=== PATIENT | female | born 1965 | race Caucasian/White ===

== ENCOUNTER 2024-03-18 05:09 | Day surgery (SDC) | payer OTHER ==
[2024-03-17 16:00] VITALS: BMI 23.1
[2024-03-18] MEDS ORDERED: LIDOCAINE HCL/PF 1% SDV 5ML VIAL ONE (07:27)
[2024-03-18] MEDS ORDERED: DEXAMETHASONE SOD PHOSPHATE 10 MG/1 ML VIAL ONE (07:28)
[2024-03-18 10:13] VITALS: RESP 20
[2024-03-18] MEDS: DEXAMETHASONE SOD PHOSPHATE 10 MG/1 ML VIAL IVPUSH ONE ×2 (11:13)
[2024-03-18] MEDS: LIDOCAINE HCL 1% PRESERVATIVE FREE - 30ML VIAL IJ ONE ×2 (11:14)
[2024-03-18] MEDS: IOHEXOL 180 MG/1 ML ML IJ ONE ×2 (11:17)
[2024-03-18] MEDS ORDERED: ACETAMINOPHEN 500 MG TABLET (FP) ONE (11:52)
[2024-03-18] MEDS: ACETAMINOPHEN 500 MG TABLET (FP) PO PRN (11:54)
[2024-03-18 14:00] VITALS: BP 128/74; PULSE 56; TEMP 98.2
== END 2024-03-18 12:40 | disposition home or self-care (01) ==
LOC: JASU-SURG 05:09
PROVIDERS: ATTEND Pain Medicine Pain Medicine
PROC: 3E0R3BZ Introduction of Anesthetic Agent into Spinal Canal, Percutaneous Approach (ICD-10-PCS; 2024-03-18)
PROC: 3E0R33Z Introduction of Anti-inflammatory into Spinal Canal, Percutaneous Approach (ICD-10-PCS; principal; 2024-03-18 10:45)
DX: M54.16 Radiculopathy, lumbar region (principal)
CPT/HCPCS: 76000-TC-FY; J1100